=== PATIENT | female | born 1990 | race Caucasian/White ===

== ENCOUNTER → 2018-05-04 11:46 | Outpatient (CLI) | payer BC, SELFPAY ==
[2016-12-28 08:00] VITALS: BMI 31.2
[2018-05-08 10:19] LABS: HPV Reflexed? NOT INDICATED
== END ==
PROVIDERS: Family Provider Physician Assistant; PCP Physician Assistant; Referring Provider Obstetrics & Gynecology; Visit Provider Obstetrics & Gynecology
DX: Z12.4 Encounter for screening for malignant neoplasm of cervix (principal)
CPT/HCPCS: 87624; 88175; G0145